=== PATIENT | female | born 1960 | race Caucasian/White ===

== ENCOUNTER → 2019-08-06 | Outpatient (CLI) | payer OTHER ==
[~2019-08-06] MED LIST: AMBIEN 5 MG TABL5 M1 PO; CIPRO500 MG PO; FLEXERIL PO; HYDROCODONE-AP1 EAC6 PO; PROZAC20 MG PO
== END ==
LOC: LAB 10:00
PROVIDERS: ATTEND Anesthesiology
DX: Z01.812 Encounter for preprocedural laboratory examination (principal); Z11.59 Encounter for screening for other viral diseases